=== PATIENT | male | born 1985 | race Caucasian/White ===

== ENCOUNTER 2017-04-08 17:49 | Emergency (ER) | payer OTHER ==
[~2017-04-08] VITALS: Ht 170.2 cm; Wt 73.0 kg
[~2017-04-08 17:49] MED LIST: ALBU1AER9 INH; ATV/1 PO; CITA10TA8 PO; DLN/100 PO; FLUO0.05 TOP; FLVHFA110 INH; KPP/1000 PO; OMEP20CA59 PO; PRLSR20 PO
[2017-04-08] MEDS ORDERED: ONDANSETRON INJ 2 MG/ML 2 ML VIAL IV STA (18:05)
[2017-04-08 18:14] VITALS: TEMP 36.8; Ht 170.2 cm; Wt 73.0 kg
[2017-04-08 18:22] LABS: BASO % 0.5 %; BASO ABS # 0.03 K/uL (0-0.2); COMPLETE YES; EOS % 4.4 %; HEMATOCRIT 41.3 % (42-52); IG% 0.2 %; LYMPH % 30.7 %; LYMPH ABS # 2.02 K/uL (1.2-3.4); MEAN CELL VOLUME 87.9 fL (80-100); MEAN CORPUSCULAR HEMOGLOBIN 30.9 pg (25-34); MEAN CORPUSCULAR HGB CONC 35.1 g/dl (32-36); MEAN PLATELET VOLUME 9.5 fL (7.4-10.4); MONO % 8.5 %; NEUT % 55.7 %; PLATELET COUNT 185 K/uL (130-400); WHITE BLOOD COUNT 6.59 K/uL (4.8-10.8)
[2017-04-08 18:48] LABS: BUN/CREATININE RATIO 6.6 (10-20); CALCIUM 8.6 mg/dl (8.5-10.1); CREATININE 0.92 mg/dl (0.60-1.40); POTASSIUM 3.5 mmol/L (3.5-5.1)
[2017-04-08] MEDS ORDERED: LEVETIRACETAM 500 MG TAB PO SCH (19:15)
[2017-04-08 19:50] VITALS: BP 109/66; PULSE 89; O2SAT 98
--- NOTE | 2017-04-08 20:29 | EMERGENCY ROOM VISIT NOTE ---
History Report prepared by Breana: Kiet Welch Under the Supervision of: Dr. Nain Wagoner M.D. First contact with patient: 17:56 Stated Complaint: EYE SPASMS & TWITCHING History of Present Illness The patient is a 31 year old male who presents to the Emergency Room by EMS with complaints of an episode of right facial twitching occurring shortly prior to arrival. He estimates that the twitching lasted for 20-30 minutes. He has a history of focal seizures as well as grand mal seizures, and states that they usually begin with similar symptoms. He does not think he actually had a seizure today. The patient states that he has not had seizure-like activity in about four years. He is on Keppra and Dilantin normally. He states that he cold- like symptoms two weeks ago. The patient also complains of nausea and mild headache. He denies any falls or trauma. He notes that he has not been sleeping well due to stress. The patient denies numbness, or weakness. Source of History: patient Onset: Shortly prior to arrival Position: head (right face) Symptom Intensity: 20-30 minutes long Quality: other (twitching) Timing: other (episode) Associated Symptoms: + headache (mild), + nausea, No weakness, No numbness Review of Systems See HPI for pertinent positives & negatives. A total of 10 systems reviewed and were otherwise negative. Past Medical & Surgical Medical Problems: (1) Asthma (2) Depressive disorder (3) Optic neuritis (4) Seizure disorder Family History No pertinent family history stated. Social History Alcohol Use: none Drug Use: none Marital Status: single Occupation Status: employed Current/Historical Medications Scheduled Albuterol (Proair Hfa), 2 PUFFS INH Q4HR PRN Fluticasone Propionate (Flovent Hfa 110MCG Inhaler *), 1 PUFF INH BID PRN Levetiracetam (Keppra), 1,000 MG PO BID Phenytoin Sodium (Dilantin), 100 MG PO DIRECTED Allergies Coded Allergies: No Known Allergies (Verified , NONE, 04/08/17) Physical Exam Vital Signs Date Time Temp Pulse Resp B/P (MAP) Pulse Ox O2 Delivery O2 Flow Rate FiO2 04/08/17 19:50 89 18 109/66 98 04/08/17 18:14 36.8 76 16 120/63 99 Room Air Physical Exam Constitutional: Vital signs reviewed. Eyes: Pupils are equal round reactive to light. Conjunctiva are noninjected. ENT: Pharynx is clear without erythema or exudate. Mucous membranes are moist. Neck supple without meningeal signs. Respiratory: Clear to auscultation bilaterally. Breath sounds are equal bilaterally. Cardiovascular: Regular rate and rhythm. No rubs or gallops. GI: Soft, nondistended and nontender. Bowel sounds are present. Musculoskeletal: No peripheral edema. No lower extremity tenderness. Integumentary: No cyanosis. Neurological: The patient is awake and alert. Cranial nerves II-XII are intact. Motor is 5 out of 5 all extremities. Sensation is intact to light touch all extremities. Normal speech. No pronator drift. No limb ataxia. Psychiatric: Normal affect. Medical Decision & Procedures Laboratory Results 04/08/17 18:15 Red Blood Count 4.70, Mean Corpuscular Volume 87.9, Mean Corpuscular Hemoglobin 30.9, Mean Corpuscular Hemoglobin Concent 35.1, Mean Platelet Volume 9.5, Neutrophils (%) (Auto) 55.7, Lymphocytes (%) (Auto) 30.7, Monocytes (%) (Auto) 8.5, Eosinophils (%) (Auto) 4.4, Basophils (%) (Auto) 0.5, Neutrophils # (Auto) 3.68, Lymphocytes # (Auto) 2.02, Monocytes # (Auto) 0.56, Eosinophils # (Auto) 0.29, Basophils # (Auto) 0.03 04/08/17 18:15 Test 04/08/17 18:15 White Blood Count 6.59 K/uL (4.8-10.8) Red Blood Count 4.70 M/uL (4.7-6.1) Hemoglobin 14.5 g/dL (14.0-18.0) Hematocrit 41.3 % (42-52) Mean Corpuscular Volume 87.9 fL (80-100) Mean Corpuscular Hemoglobin 30.9 pg (25-34) Mean Corpuscular Hemoglobin Concent 35.1 g/dl (32-36) Platelet Count 185 K/uL (130-400) Mean Platelet Volume 9.5 fL (7.4-10.4) Neutrophils (%) (Auto) 55.7 % Lymphocytes (%) (Auto) 30.7 % Monocytes (%) (Auto) 8.5 % Eosinophils (%) (Auto) 4.4 % Basophils (%) (Auto) 0.5 % Neutrophils # (Auto) 3.68 K/uL (1.4-6.5) Lymphocytes # (Auto) 2.02 K/uL (1.2-3.4) Monocytes # (Auto) 0.56 K/uL (0.11-0.59) Eosinophils # (Auto) 0.29 K/uL (0-0.5) Basophils # (Auto) 0.03 K/uL (0-0.2) RDW Standard Deviation 40.5 fL (36.4-46.3) RDW Coefficient of Variation 12.6 % (11.5-14.5) Immature Granulocyte % (Auto) 0.2 % Immature Granulocyte # (Auto) 0.01 K/uL (0.00-0.02) Anion Gap 7.0 mmol/L (3-11) Est Creatinine Clear Calc Drug Dose 107.8 ml/min Estimated GFR () 127.1 Estimated GFR (Non- 109.7 BUN/Creatinine Ratio 6.6 (10-20) Calcium Level 8.6 mg/dl (8.5-10.1) Phenytoin (Dilantin) Level 14.5 mcg/mL (10-20) Laboratory results as reviewed by me. Medications Administered Medications (Trade) Dose Ordered Sig/Lili Route Start Time Stop Time Status Last Admin Dose Admin Ondansetron HCl (Zofran Inj) 4 mg NOW STAT IV 04/08/17 18:05 04/08/17 18:06 DC 04/08/17 18:21 4 MG Levetiracetam (Keppra Tab) 500 mg ONE PO 04/08/17 19:15 05/08/17 19:14 04/08/17 19:47 500 MG ED Course 1759: The patient was evaluated in room B12B. A complete history and physical exam was performed. 1804: Ordered Zofran Inj 4 mg IV. 1914: Ordered Keppra Tab 500 mg PO. 1856: I reassessed the patient. He feels great. He has no headache, or nausea and is completely asymptomatic. I discussed his test results and the treatment plan with the patient. 1904: The patient is ready for discharge. Medical Decision This is a 31-year-old male who presents with twitching to his face. Differential diagnosis includes seizure like activity, anxiety, tic, insomnia, metabolic derangement. I did perform a limited focused review of portions of the patient's old chart on the electronic medical record. The patient has had no recent pertinent visits to this hospital. I did evaluate the patient as noted above. He is presenting with transient twitching to his face. It has completely resolved. He does have some nausea and mild headache. He states that he had similar activity which led to a focal seizure in the past and was concerned. He does not think he had a seizure today. He is neurologically intact. IV access was established. I did treat him with Zofran IV. The patient was placed on a continuous rd project manager. I did order and personally review the patient's 12-lead EKG and chest x-ray as described above. I did order and review the patient's blood work as noted in the electronic medical record. His Dilantin level is 14.5. On reassessment the patient is feeling better. He has no symptoms at this time. He no longer has a headache or any nausea. I did discuss the test results with the patient. I did discuss the case with Dr. Vásquez who is familiar with the patient. He recommended giving him an extra dose of Keppra and have the patient call him in the morning for further instructions. The patient was happy with this plan. He was given Keppra 500 mg here and discharged in good condition. Consults Time Called: 1857 Consulting Physician: Dr. Vásquez -Neurology Returned Call: [phone] Vásquez of Neurology. We discussed the patient and his results. Dr. Vásquez recommends the patient be given Keppra and have him call in the morning for outpatient follow up. Impression Primary Impression: Facial twitching Scribe Attestation The scribe's documentation has been prepared under my direct and personally reviewed by me in its entirety. I confirm that the note above accurately reflects all work, treatment, procedures, and medical decision making performed by me. Departure Information Dispostion Home / Self-Care Referrals Savannah Mario M.D. (PCP) Forms HOME CARE DOCUMENTATION FORM, IMPORTANT VISIT INFORMATION Patient Instructions My [facility] Additional Instructions You have been examined and treated today on an emergency basis only. This is not a substitute for, or an effort to provide, complete comprehensive medical care. It is impossible to recognize and treat all injuries or illnesses in a single emergency department visit. It is therefore important that you follow up closely with your neurologist. Call as soon as possible for an appointment. Return for worsening symptoms or if you develop fever, vomiting, or any other concerning symptoms.
== END 2017-04-08 19:52 | disposition home or self-care (01) ==
LOC: EDBD 17:49 → C.EDB 17:50
DX: R25.3 Fasciculation (principal); R51 Headache; R11.0 Nausea; J45.909 Unspecified asthma, uncomplicated; F32.9 Major depressive disorder, single episode, unspecified; G40.909 Epilepsy, unspecified, not intractable, without status epilepticus